=== PATIENT | female | born 1965 | race Caucasian/White ===

== ENCOUNTER 2023-01-07 14:50 | Outpatient (CLI) | payer OTHER, SELFPAY ==
--- NOTE | 2023-01-07 15:00 | CRLHL7_ITS ---
For Patients: As a result of the Century Cures Act, medical imaging exams and procedure reports are released immediately into your electronic medical record. You may view this report before your referring provider. If you have questions, please contact your health care provider. BILATERAL SCREENING MAMMOGRAM WITH COMPUTER-AIDED DETECTION AND TOMOSYNTHESIS TECHNIQUE: CC, MLO and Implant displaced views were obtained. These mammographic images have been obtained using full-field digital technique. These mammographic images were interpreted with the benefit of computer-aided detection. Breast Tomosynthesis was used in this interpretation. COMPARISON FILM: 09/11/20, 06/15/20, 11/05/18. FINDINGS: There are scattered areas of fibroglandular density IMPRESSION: There is no radiographic evidence for malignancy. ASSESSMENT: BI-RADS Category 2: Benign RECOMMENDATION: Routine screening mammogram in 1 year. A lay language report of this examination will be provided to the patient. Ronan Bañuelos M.D. Diagnostic/Nuclear Medicine Radiologist [email or web address] DIVINA/Dictated by: Ronan Bañuelos MD @ 01/08/2023 10:45:00 AM (Electronically Signed)
== END 2023-01-07 14:51 | disposition home or self-care (01) ==
PROVIDERS: PCP Family Medicine; Visit Provider Family Medicine
DX: Z12.31 Encounter for screening mammogram for malignant neoplasm of breast (principal)
CPT/HCPCS: 77063; 77067

== ENCOUNTER 2023-10-21 08:05 | Outpatient (CLI) | payer OTHER, SELFPAY ==
--- OUTSIDE RECORDS SUMMARY | 2023-10-25 12:54 | XMS_ITS | Encounter Summary ---
Author Organization [facility] Address [address] [place] [address]. [place] [address] Care Team Providers Care Turn Sewer Name Role Phone Licha Johnson MD Unavailable [phone] Violet Melgar MD Unavailable [phone] Violet Melgar MD Primary Care Provider Jennifer Roberts MD Unavailable [phone] Florentin Ojeda MD Unavailable [phone] Thierry Cheney PA-C Unavailable [phone] Violet Melgar MD Unavailable [phone] Encounter Details Date Type Department Care Team (Late st Contact Info) Description 02/06/[address] [facility] [address] [place] [id number] Pilar White, RN Social History Tobacco Use Types Packs/Day Years Used Date Smoking Tobacco: Former Cigarettes Q uit: 2006 Smokeless Tobacco: Never Alcohol Use Standard Drinks/Week Comments Yes 0 (1 standard drink = 0.6 oz pur e alcohol) Been awhile PHQ-2 Answer Date Recorded PHQ-2 Score 0 01/01/2022 Sex and Gender Information Value Date Recorded Sex Assigned at Female 09/14/2021 3:18 PM CDT Gender Identity Female 09/14/2021 3:18 PM CDT Sexual Orientation Straight 09/14/2021 3: 18 PM CDT COVID-19 Exposure Response Date Recorded In the last 10 days, have yo u been in contact with someone who was confirmed or suspected to have Coronavirus/COVID-19? No / Unsure 02/04/2022 7:34 AM CDT documented as of this encounter Plan of Treatment Not on file documented as of this encounter Visit Diagnoses Not on filedocumented in this encounter Additional Health Concerns Assessment Noted Time PHQ-9 Depression Total Score: 1 01/02/20 22 11:30 AM CDT documented as of this encounter Care Teams Turn Sewer Relationship Specialty [place] [address] [address] [address] PCP - General Family Medicine 01/01/22 Licha Johnson MD MD INTERNAL MEDICINE - ENDOCRINOLOGY, DIABETES & METABOLISM 04/12/11 [place] [address] [address] [address] Assigned PCP 08/31/21 03/28/23 Jennifer Roberts MD [address] [place] [address] [id number] Assigned Surgical Provider 01/19/22 01/31/23 Florentin Ojeda MD [address] [place] [id number] Assigned Heart and Vascular Provider 01/26/22 07/31/23 Thierry Cheney PA-C [address] [address] [address] Assigned PCP 03/29/23 07/10/23 [place] [address] [address] [address] Assigned PCP 07/11/23 documented as of this encounter
--- OUTSIDE RECORDS SUMMARY | 2023-10-25 12:54 | XMS_ITS | Clinical Summary ---
Author Organization [facility] Address [address] [place] [address] Care Team Providers Care Credit Director Name Role Phone Shukri Blancas MD Primary Care Provider [phone] Source Comments You are receiving this document as you are listed as the primary care provider,follow-up provider, or the patient has been referred to you for consultation.This is in compliance with the Medicare and[facility] EHR Incentive Program,which states Providers who transition their patient to another setting of careor provider of care or refers their patient to another provider of care shouldprovide summary care record for each transition of care or referral. [facility] Allergies No known active allergies Medications Medication Sig Dispensed Refills Start Date End Date Status LEVOXYL 137 MCG tablet 09/13/2019 Active sertraline (ZOLOFT) 100 MG tablet 09/14/2019 Active clobetasol (TEMOVATE) 0.05 % cream BLAINE SPARINGLY EXT AA BID 09/28/2019 Active rosuvastatin (CRESTOR) 10 MG tablet 04/05/2020 Active diclofenac (VOLTAREN) 1 % gelIndications:Primar y osteoarthritis of both knees,Primary osteoarthritis involving multiple joints Apply 4 g to skin 4 times a day. 300 g 11 07/24/2020 Active celecoxib (CELEBREX) 200 MG capsuleIndications:Ar thralgia, unspecified joint,Primary osteoarthritis of both knees,Primary osteoarthritis involving multiple joints Take 1 Capsule by mouth daily as needed for Pain. 180 Capsule 1 07/24/2020 Active Active Problems Problem Noted Date Diagnosed Date Primary osteoarthritis involving multiple joints 07/24/2020 NITA (obstructive sleep apnea) 08/13/2013 Insomnia 06/23/2013 Left-sided sensorineural hearing loss 01/19/2013 Hypothyroidism 06/25/2012 Overview: Due to thyroidectomy for papillary CA; managed by Dr. Carrillo in [place] (endocrine) Immunizations Name Administration Dates Next Due DTP 08/03/1968,1966,1966 Flu Vac (3+ yrs) 03/19/2013,03/01/2010 Influenza, Unspecified Formulation 04/05/2020 OPV, Trivalent (Orimune or tOPV) 08/20/1967,10/18 Tdap 06/03/2012 Family History Medical History Relation Name Comments Heart Disease Father Cancer Mother Relation Name Status Comments Father Mother Social History Tobacco Use Types Packs/Day Years Used Date Smoking Tobacco: Never Smokeless Tobacco: Never Sex and Gender Information Value Date Recorded Sex Assigned at Not on file Gender Identity Not on file Sexual Orientation Not on file Last Filed Vital Signs Vital Sign Reading Time Taken Comments Blood Pressure 123/78 07/24/2020 9:05 AM CORONER Pulse 79 07/24/2020 9:05 AM CORONER Temperature 36.9 ??C (98.5 ??F) 07/24/2020 9:05 AM CS T Respiratory Rate - - Oxygen Saturation - - Inhaled Oxygen Concentration - - Weight 77.6 kg (171 lb) 07/24/2020 9:05 AM CORONER Height 172.7 cm (5' 8) 12/15/2019 9:44 AM CDT Body Mass Index 26 12/15/2019 9:44 AM CDT Plan of Treatment Health Maintenance Due Date Last Done Comments Cervical Cancer Screening Due 1966 Colon Cancer Screening Plan Due 1966 Mammogram 1966 IPV (Polio) (3 of 3 - 4-dose series) 1970 08/20/1967, 1966 HIV Screening (Preventive Services) 1982 Adult Preventive Visit 1984 HepB (1) 1985 Cholesterol 09/23/2011 Zoster/Shingles (1 of 2) 2016 DTaP/Tdap/Td (5 - Tdap) 06/03/2022 06/03/19 13, 06/03/2012, 08/03/1968, Additional history exists COVID-19 Vaccine ( - 2022-24 season) 2023 Influenza (Season Ended) 2024 020, 03/19/2013, 03/01/2010 Hep C Screening (Preventive Services) Completed 04/25/2020 HepA Aged Out No longer eligi ble based on patient's age to complete this topic Hib Aged Out No longer eligi ble based on patient's age to complete this topic MCV4 Aged Out No longer eligi ble based on patient's age to complete this topic Pneumococcal Aged Out No longer eligi ble based on patient's age to complete this topic Procedures Procedure Name Priority Date/Time Associated Diagnosis Comments HEPATITIS C ANTIBODY, WITH REFLEX Routine 04/25/2020 10:01 AM CORONER Arthralgia, unspecified joint Psoriasis Primary osteoarthritis of both knees from Last 3 Months or Most Recently Relevant to Health Maintenance Results * [facility]AB - Hepatitis C Virus [place] with Reflex In-House (04/25/2020 10:01 AM CORONER) Hepatitis C Antibody Negative (Non Reactive) Negative (Non Reactive) 04/25/2020 4:09 PM [facility] Comment:Antibodies to HCV no t detected. Does not exclude the possiblity of exposure to HCV. Blood Venipuncture / Unknown 04/25/2020 10:01 AM CORONER 04/25/2020 10:05 AM CORONER Ede Lynn MD [facility] [address] [place] [address], [facility] from Last 3 Months or Most Recently Relevant to Health Maintenance Care Teams Credit Director Relationship Specialty Start Date End Date Shukri Blancas MD [facility] [address] [place] [address] PCP - General Family Practice 10/28/19
--- OUTSIDE RECORDS SUMMARY | 2023-10-25 12:54 | XMS_ITS | Referral Summary ---
Author Organization [facility] Address [address] [place] [address] Care Team Providers Care Reports Analyst Name Role Phone Licha Johnson MD Unavailable [phone] Violet Melgar MD Primary Care Provider Violet Melgar MD Unavailable [phone] Allergies No known active allergies Medications Medication Sig Dispensed Refills Start Date End Date Status sertraline (ZOLOFT) 100 MG tablet 09/05/2021 Active sertraline (ZOLOFT) 50 MG tablet 09/05/2021 Active diclofenac (VOLTAREN) 1 % topical gel Place 4 g onto the skin 07/24/2020 Active clobetasol (TEMOVATE) 0.05 % external cream APPLY TOPICALLY TWICE DAILY. APPLY SPARINGLY TO AFFECTED AREA. 03/15/2021 Active acyclovir (ZOVIRAX) 200 MG capsule 08/07/2021 Active rosuvastatin (CRESTOR) 10 MG tabletIndications:Hyp erlipidemia LDL goal <100 Take 1 tablet (10 mg) by mouth daily 90 tablet 3 09/20/2021 Active LEVOXYL 125 MCG tabletIndications:Pos tsurgical hypothyroidism Take 1 tablet (125 mcg) by mouth daily 90 tablet 3 09/20/2021 Active sertraline (ZOLOFT) 100 MG tabletIndications:Mil d recurrent major depression (H24) TAKE ONE AND ONE-HALF TABLETS BY MOUTH DAILY 135 tablet 03/12/2022 Active Active Problems Problem Noted Date Diagnosed Date Cyst of ovary, unspecified laterality 10/11/2021 Uterine leiomyoma, unspecified location 10/12/19 22 Hyperlipidemia LDL goal <100 10/11/2021 Mild recurrent major depression (H24) 10/11/2021 Hx of thyroid cancer 10/11/2021 Menopause 10/11/2021 Postsurgical hypothyroidism 10/11/2021 Other postprocedural status(V45.89) 11/26/2006 Resolved Problems Problem Noted Date Diagnosed Date Resolved Date iamiamMALIG SEGUN HEAD/FACE/NECK 11/26/2006 10/11/2021 Immunizations Name Administration Dates Next Due COVID-19 MONOVALENT 12+ (Pfizer) 03/12/2021,01/17 Flu, Unspecified 04/05/2020 Historical DTP/aP 08/03/1968, 7,1966,1966 Influenza (IIV3) PF 03/19/2013,03/01/2010 Influenza Vaccine >6 months,quad, PF 03/12/2021, 04/05/2020 Mantoux Tuberculin Skin Test 08/03/1968 OPV, trivalent, live 08/20/1967,1966,11/06 Poliovirus, inactivated (IPV) 08/20/1967 TD,PF 7+ (Tenivac) 11/02/1981 TDAP (Adacel,Boostrix) 06/03/2012 Td (Adult), Adsorbed 06/03/2012 Social History Tobacco Use Types Packs/Day Years Used Date Smoking Tobacco: Former Cigarettes Q uit: 2006 Smokeless Tobacco: Never Alcohol Use Standard Drinks/Week Comments Yes 0 (1 standard drink = 0.6 oz pur e alcohol) Been awhile PHQ-2 Answer Date Recorded PHQ-2 Score 0 01/01/2022 Adolescent Education Answer Date Record ed Getting School Help Needed Not on file 03/03 Sex and Gender Information Value Date Recorded Sex Assigned at Female 09/14/2021 3:18 PM CDT Gender Identity Female 09/14/2021 3:18 PM CDT Sexual Orientation Straight 09/14/2021 3: 18 PM CDT Last Filed Vital Signs Vital Sign Reading Time Taken Comments Blood Pressure 112/66 01/22/2022 8:39 AM CDT Pulse 63 01/22/2022 8:39 AM CDT Temperature 36.8 ??C (98.3 ??F) 01/01/2022 11:17 AM C DT Respiratory Rate 12 01/01/2022 11:17 AM CDT Oxygen Saturation 96% 01/22/2022 8:39 AM CDT Inhaled Oxygen Concentration - - Weight 72.7 kg (160 lb 4.8 oz) 01/22/2022 8:39 A M CDT Height 170.8 cm (5' 7.25) 01/22/2022 8:39 AM CD T Body Mass Index 24.92 01/22/2022 8:39 AM CDT Plan of Treatment Not on file Procedures Procedure Name Priority Date/Time Associated Diagnosis Comments BASIC METABOLIC PANEL Routine 01/01/2022 12:21 PM CDT Tinnitus of both ears TSH WITH FREE T4 REFLEX Routine 01/01/2022 12:21 PM CDT Tinnitus of both ears LIPID REFLEX TO DIRECT LDL PANEL Routine 01/01/2022 12:21 PM CDT Pressure in chest MA SCREENING WITH IMPLANTS BILATERAL W/ MISA Routine 11/09/2021 8:55 AM CDT Visit for screening mammogram HIV ANTIGEN ANTIBODY COMBO Routine 09/20/2021 5:56 PM CDT Screening for HIV (human immunodeficiency virus) HEPATITIS C SCREEN REFLEX TO HCV RNA QUANT AND GENOTYPE Routine 09/20/2021 5:56 PM CDT Need for hepatitis C screening test GYNECOLOGIC CYTOLOGY Routine 09/20/2021 5:37 PM CDT Cervical cancer screening HPV HIGH RISK TYPES DNA CERVICAL Routine 09/20/2021 5:37 PM CDT Cervical cancer screening COLONOSCOPY - HIM SCAN Routine 05/19/[address] THORAX W/O CONT Routine 07/27/2007 3:07 PM CDT from Last 3 Months or Most Recently Relevant to Health Maintenance Results * TSH with free T4 reflex (01/01/2022 12:21 PM CDT) TSH 0.59 0.40 - 4.00 mU/L 01/02/2022 11:50 AM CDT [facility] Blood BLOOD SPECIMEN / Unknown Venipuncture / Unknown 01/01/2022 12:21 PM CDT 01/01/2022 12:21 PM CDT Thierry Cheney PA-C LAB - BLOOD OR DERABLES [facility] [address] Lab (no room number, 1st floor of clinic) [place] [address], [facility] [phone] * (ABNORMAL) Lipid panel reflex to direct LDL Fasting (01/01/2022 12:21 PM CDT) Cholesterol 198 <200 mg/dL 01/02/2022 11:43 AM CDT [facility] Triglycerides 284(H) <150 mg/dL 01/02/2022 11:43 AM CDT [facility] Direct Measure HDL 50 >=50 mg/dL 01/02/2022 11:43 AM CDT [facility] LDL Cholesterol Calculated 91 <=100 mg/dL 01/02/2022 11:43 AM CDT [facility] Non HDL Cholesterol 148(H) <130 mg/dL 01/02/2022 11:43 AM CDT [facility] Patient Fasting > 8hrs? Yes 01/02/2022 11:43 AM CDT [facility] Blood BLOOD SPECIMEN / Unknown Venipuncture / Unknown 01/01/2022 12:21 PM CDT 01/01/2022 12:21 PM CDT Narrative [facility] - 01/02/2022 11:43 AM CDT Cholesterol Desirable: ??<200 mg/dL Triglycerides Normal: ??Less than 150 mg/dL Borderline High: ??150-199 mg/dL High: ??200-499 mg/dL Very High: ??Greater than or equal to 500 mg/dL Direct Measure HDL Female: ??Greater than or equal to 50 mg/dL Male: ??Greater than or equal to 40 mg/dL LDL Cholesterol Desirable: ??<100mg/dL Above Desirable: ??100-129 mg/dL Borderline High: ??130-159 mg/dL High: ??160-189 mg/dL Very High: ??>= 190 mg/dL Non HDL Cholesterol Desirable: ??130 mg/dL Above Desirable: ??130-159 mg/dL Borderline High: ??160-189 mg/dL High: ??190-219 mg/dL Very High: ??Greater than or equal to 220 mg/dL Thierry Cheney PA-C LAB - BLOOD OR DERABLES [facility] [address] Lab (no room number, 1st floor of clinic) [place] [address], [facility] [phone] * Basic metabolic panel (Ca, Cl, CO2, Creat, Gluc, K, Na, BUN) (01/01/2022 12:21 PM CDT) Sodium 140 133 - 144 mmol/L 01/02/2022 11:36 AM CDT [facility] Potassium 4.3 3.4 - 5.3 mmol/L 01/02/2022 11:36 AM CDT [facility] Chloride 107 94 - 109 mmol/L 01/02/2022 11:36 AM CDT [facility] Carbon Dioxide (CO2) 27 20 - 32 mmol/L 01/02/2022 11:36 AM CDT [facility] Anion Gap 6 3 - 14 mmol/L 01/02/2022 11:36 AM CDT [facility] Urea Nitrogen 15 7 - 30 mg/dL 01/02/2022 11:36 AM CDT [facility] Creatinine 0.80 0.52 - 1.04 mg/dL 01/02/2022 11:36 AM CDT [facility] Calcium 9.6 8.5 - 10.1 mg/dL 01/02/2022 11:36 AM CDT [facility] Glucose 92 70 - 99 mg/dL 01/02/2022 11:36 AM CDT [facility] GFR Estimate 87 >60 mL/min/1.7 3m2 01/02/2022 11:36 AM CDT [facility] Comment:Effective April 192020 eGFRcr in adults is calculated using the 2020 CKD-EPI creatinine equation which includes age and gender (Brant et al., NEJ, DOI: 10.1056/QAZOqn5740269) Blood BLOOD SPECIMEN / Unknown Venipuncture / Unknown 01/01/2022 12:21 PM CDT 01/01/2022 12:21 PM CDT Thierry Cheney PA-C LAB - BLOOD OR DERABLES [facility] [address] Lab (no room number, 1st floor of clinic) [place] [address], [facility] [phone] * MA Screen with Implants Bilateral w/Misa (11/09/2021 8:55 AM CDT) Anatomical Region Laterality Modality Breast Bilateral Mammography Narrative 11/12/2021 7:05 AM CDT BILATERAL FULL FIELD DIGITAL SCREENING MAMMOGRAM WITH TOMOSYNTHESIS Performed on: 11/09/21 No comparisons were made when reading this study. Technique: ??This study was evaluated with the assistance of Computer-Aided Detection. ??Breast Tomosynthesis was used in interpretation. Findings: The breasts have scattered areas of fibroglandular density. ?? There are breast augmentation changes in both breasts. There is no radiographic evidence of malignancy. IMPRESSION: ACR BI-RADS Category 2: Benign RECOMMENDED FOLLOW-UP: Annual routine screening mammogram The results and recommendations of this examination will be communicated to the patient. Violet Melgar MD IMG MAMMOGRAPHY ORDERABLES * HIV Antigen Antibody Combo (09/20/2021 5:56 PM CDT) HIV Antigen Antibody Combo Nonreactive Nonreactive 09/21/2021 4:48 PM CDT [facility] C[facility]/PROT/EN DO Comment:HIV-1 p24 Ag & HIV-1 /HIV-2 Ab Not Detected Blood STRUCTURE OF LEFT UPPER LIMB / Unknown Venipuncture / Unknown 09/20/2021 5:56 PM CDT 09/20/2021 5:56 PM CDT Violet Melgar MD LAB - BLOOD ORD ERABLES [facility]PROT/ENDO [facility] Core/Prot/Endo [address] [facility], [address] [address], [facility] [phone] * Hepatitis C Screen Reflex to HCV RNA Quant and Genotype (09/20/2021 5:56 PM CDT) Hepatitis C Antibody Nonreactive Nonreactive 09/21/2021 4:48 PM CDT [facility] C[facility]/PROT/EN DO Blood STRUCTURE OF LEFT UPPER LIMB / Unknown Venipuncture / Unknown 09/20/2021 5:56 PM CDT 09/20/2021 5:56 PM CDT Narrative [facility]/PROT/ENDO - 09/21/2021 4:48 PM CDT Assay performance characteristics have not been established for newborns, infants, and children. Violet Melgar MD LAB - BLOOD ORD ERABLES [facility]/PROT/ENDO [facility] Core/Prot/Endo [address] [facility], [address] [address], [facility] [phone] * Pap Screen with HPV - recommended age 30 - 65 years (09/20/2021 5:37 PM CDT) Interpretation Negative for Intraepithelial Lesion or Malignancy (NILM) 09/25/2021 10:19 AM CDT [facility] Comment Papanicolaou Test Limitations: Cervical cytology is a screening test with limited sensitivity, and regular screening is critical for cancer prevention. Pap tests are primarily effective for the diagnosis/prevent ion of squamous cell carcinoma, not adenocarcinoma or other cancers. 09/25/2021 10:19 AM CDT [facility] Specimen Adequacy Satisfactory for evaluation but limited by:transitional zone component present. 09/25/2021 10:19 AM CDT [facility] Clinical Information post-menopausal 09/25/2021 10:19 AM CDT [facility] Reflex Testing Yes regardless of result 09/25/2021 10:19 AM CDT [facility] Previous Abnormal? No 09/25/2021 10:19 AM CDT [facility] Performing Labs The technical component of this testing was completed at [facility] 09/25/2021 10:19 AM CDT [facility] Brushing CERVIX UTERI STRUCTURE / Unknown 09/20/2021 5:37 PM CDT 09/20/2021 5:58 PM CDT Violet [facility]APLAN [facility] Specialty Lab [address] [facility], [address] [address], [facility] [phone] * HPV High Risk Types DNA Cervical (09/20/2021 5:37 PM CDT) Other HR HPV Negative Negative 09/27/2021 1:07 PM CDT [facility] HPV16 DNA Negative Negative 09/27/2021 1:07 PM CDT [facility] HPV18 DNA Negative Negative 09/27/2021 1:07 PM CDT [facility] FINAL DIAGNOSIS This patient's sample is negative for HPV DNA. This test was developed and its performance characteristics determined by the [facility]. It has not been cleared or approved by the FDA. The laboratory is regulated under CLIA as qualified to perform high-complexity testing. This test is used for clinical purposes. It should not be regarded as investigational or for research. METHODOLOGY: The Leola Gillian 4800 system uses automated extraction, simultaneous amplification of HPV (L1 region) and beta-globin, followed by real time detection of fluorescent labeled HPV and beta globin using specific oligonucleotide probes. The test specifically identified types HPV 16 DNA and HPV 18 DNA while concurrently detecting the rest of the high risk types (31, 33, 35, 39, 45, 51, 52, 56, 58, 59, 66 or 68). COMMENTS: This test is not intended for use as a screening device for woman under age 30 with normal cervical cytology. Results should be correlated with cytologic and histologic findings. Close clinical followup is recommended. 09/27/2021 1:07 PM CDT [facility] Brushing CERVIX UTERI STRUCTURE / Unknown Non-blood Collection / Unknown 09/20/2021 5:37 PM CDT 09/26/2021 11:21 AM CDT Violet Melgar MD LAB - BLOOD ORD ERABLES [facility] Molecular Diagnostics [address] [facility] [address], [address] [place] [address], [facility] [phone] * Colonoscopy - HIM Scan (05/19/2016) Narrative Waleska Chadwick - 05/19/2016 Violet Melgra MD ??P Abstract Quality Initiatives Colonoscopy normal 2017 at [facility] Patient Reported PROCEDURES * CT SCAN CHEST (07/27/2007 3:07 PM CDT) Anatomical Region Laterality Modality Other 07/27/2007 3:07 PM CDT Impressions 07/30/2007 4:[address] CHEST WITH CONTRAST Jul 27, 2007 3:07:00 PM HISTORY: Hypothyroid and papillary cancer. TECHNIQUE: Helical CT through the chest was performed following injection of 100 mL of [id number]-300 without adverse reaction. COMPARISON: 10/08/2006. FINDINGS: Calcified lymph nodes in the right retro and perijugular neck base seen on previous examination has been removed. I do not see evidence for any local recurrence of adenopathy in this region. Mediastinum also shows no new masses or adenopathy. Anterior mediastinal soft tissue mass is less prominent and has features most compatible with that of the thymus gland. Cardiac size, shape and pericardium appear normal. Lung parenchyma demonstrates a tiny stable 5 mm subpleural pulmonary nodule in the superior right upper lung (image 12, sequence 4). The remainder of the lung parenchyma is again felt to be clear without sign of active chest disease. CONCLUSION: 1. Interval resolution or surgical removal of calcified lymph nodes in the anterior right neck base. 2. Overall decrease of prominent anterior mediastinal soft tissue mass which has configuration and radiographic appearance most compatible with thymus gland. 3. Stable tiny subpleural pulmonary nodule in the right upper lung. No evidence for metastatic disease within the chest is felt to be present. Licha Johnson MD SPECIAL IMAGING [facility] from Last 3 Months or Most Recently Relevant to Health Maintenance Care Teams Reports Analyst Relationship Specialty [place] [address] [address] [address] PCP - General Family Medicine 01/01/22 Licha Johnson MD INTERNAL MEDICINE - ENDOCRINOLOGY, DIABETES & METABOLISM 04/12/11 [place] [address] [address] [address] Assigned PCP 07/11/23
--- OUTSIDE RECORDS SUMMARY | 2023-10-25 12:54 | XMS_ITS | Clinical Summary ---
Author Organization [facility] Address [address] [place] [address] Care Team Providers Care Community Service Aide Name Role Phone Licha Johnson MD Unavailable [phone] Violet Melgar MD Primary Care Provider Violet Melgar MD Unavailable [phone] Allergies No known active allergies Medications Medication [...] laterality 10/11/2021 Uterine leiomyoma, unspecified location 10/12/19 Hyperlipidemia LDL goal <100 10/11/2021 Mild recurrent [...] TDAP (Adacel,Boostrix) 06/03/2012 Td (Adult), Adsorbed 06/03/2012 Family History Medical History Relation Comments Bradycardia Father Pacemaker Father Prostate Cancer Father Polycystic ovary syndrome Mother Thyroid Cancer Mother Hyperlipidemia Paternal Grandfather Hypertension Paternal Grandfather Myocardial Infarction Paternal Grandfather Diabetes Paternal Grandmother Hyperlipidemia Paternal Grandmother Hypertension Paternal Grandmother Hyperlipidemia Sister 1 Hypertension Sister 1 Polycystic ovary syndrome Sister 1 Hyperlipidemia Sister 2 Relation Status Comments Father Maternal Grandfather Maternal Grandmother Mother Paternal Grandfather Paternal Grandmother Sister 1 Alive Sister 2 Alive Social History Tobacco Use Types Packs/Day Years [...] 01/22/2022 8:39 AM CDT Plan of Treatment Health Maintenance Due Date Last Done Comments ADVANCE CARE PLANNING 1966 CT COLONOGRAPHY 1966 DEPRESSION ACTION PLAN 1966 FIT 1966 FLEX SIG 1966 sDNA (Cologuard) 1966 IPV IMMUNIZATION (3 of 3 - 4-dose series) 1970 08/20/1967, 08/20/1967, 1966, Additional history exists HEPATITIS B IMMUNIZATION (1 of 3 - 19+ 3-dose series) 1985 LUNG CANCER SCREENING 2016 07/27/2007 , 01/22/2007, 10/08/2006 ZOSTER IMMUNIZATION (1 of 2) 2016 DTAP/TDAP/TD IMMUNIZATION (7 - Td or Tdap) 06/03/2022 06/03/2012, 06/03/2012, 11/02/1981, Additional history exists PHQ-9 07/04/2022 01/01/2022, 0810/2021, 09/20/2021, Additional history exists ANNUAL REVIEW OF HM ORDERS 09/20/2022 09/20/2021 YEARLY PREVENTIVE VISIT 09/20/2022 09/20/2021 LIPID 01/01/2023 01/01/2022, 09/20/2021 TSH W/FREE T4 REFLEX 01/01/2023 01/01/2022, 09/20/2021, 09/20/2021 COVID-19 Vaccine ( season) 2023 03/12/2021, 01/29/2021 MAMMO SCREENING 11/10/2023 11/09/2021 INFLUENZA VACCINE (Season Ended) 2024 03/12/2021, 04/05/2020, 04/05/2020, Additional history exists GLUCOSE 01/01/2025 01/01/2022 COLONOSCOPY 05/19/2026 05/19/2016 COLORECTAL CANCER SCREENING 05/19/2026 HPV TEST 09/20/2026 09/20/2021 PAP 09/20/2026 09/20/2021 HEPATITIS C SCREENING Completed 09/20/2021 HIV SCREENING Completed 09/20/2021 HPV IMMUNIZATION Aged Out No longer e ligible based on patient's age to complete this topic MENINGITIS IMMUNIZATION Aged Out No l onger eligible based on patient's age to complete this topic Pneumococcal Vaccine: Pediatrics (0 to 5 Years) and At-Risk Patients (6 to 64 Years) Aged Out No longer eligible based on patient's age to complete this topic RSV MONOCLONAL ANTIBODY Aged Out No l onger eligible based on patient's age to complete this [...] LAB - BLOOD OR DERABLES [facility] [address] Lab (no room number, 1st floor of clinic) [place] [address], [facility] [phone] * (ABNORMAL) Lipid panel reflex to direct [...] Cheney PA-C LAB - BLOOD OR DERABLES Performing Organization Address [facility]/State/ZIP Co de Phone Number [facility] [address] Lab (no room number, 1st floor of clinic) [place] [address], [facility] [phone] * Basic metabolic panel (Ca, Cl, CO2, [...] and gender (Brant et al., NEJ, DOI: 10.1056/[id number]) Blood BLOOD SPECIMEN / Unknown Venipuncture / Unknown 01/01/2022 12:21 PM CDT 01/01/2022 12:21 PM CDT Thierry Cheney PA-C LAB - BLOOD OR DERABLES [facility] [address] Lab (no room number, 1st floor of clinic) [place] [address], [facility] [phone] * MA Screen with Implants Bilateral w/Misa [...] Combo Nonreactive Nonreactive 09/21/2021 4:48 PM CDT [facility]EN DO Comment:HIV-1 p24 Ag & HIV-1 /HIV-2 Ab Not Detected Blood STRUCTURE OF LEFT UPPER LIMB / Unknown Venipuncture / Unknown 09/20/2021 5:56 PM CDT 09/20/2021 5:56 PM CDT Violet Melgar MD LAB - BLOOD ORD ERABLES Performing Organization Address City/[facility]/ZIP Co de Phone Number [facility]/ENDO [facility]Prot/Endo [address] [facility], [address] [phone] * Hepatitis C Screen Reflex to HCV [...] [facility]PROT/ENDO [facility]Prot/Endo [address] [facility] [address] [facility], Room [address] [phone] * Pap Screen with HPV - recommended age 30 - 65 years (09/20/2021 5:37 PM CDT) Interpretation Negative for Intraepithelial Lesion or Malignancy (NILM) 09/25/2021 10:19 AM CDT [facility] Comment Papanicolaou Test Limitations: Cervical cytology is a screening test with limited sensitivity, and regular screening is critical for cancer prevention. Pap tests are primarily effective for the diagnosis/prevent ion of squamous cell carcinoma, not adenocarcinoma or other cancers. 09/25/2021 10:19 AM CDT [facility] Specimen Adequacy Satisfactory for evaluation but limited by:transitional zone component present. 09/25/2021 10:19 AM CDT [facility] Clinical Information post-menopausal 09/25/2021 10:19 AM CDT [facility] Reflex Testing Yes regardless of result 09/25/2021 10:19 AM CDT [facility] Previous Abnormal? No 09/25/2021 10:19 AM CDT [facility] Performing Labs The technical component of this testing was completed at [facility] 09/25/2021 10:19 AM CDT [facility] Brushing CERVIX UTERI STRUCTURE / Unknown 09/20/2021 5:37 PM CDT 09/20/2021 5:58 PM CDT Violet GRANADOS [facility] [address] [facility], [address] [place] [address], [facility] [phone] * HPV High Risk Types DNA Cervical (09/20/2021 5:37 PM CDT) Other HR HPV Negative Negative 09/27/2021 1:07 PM CDT [facility] HPV16 DNA Negative Negative 09/27/2021 1:07 PM CDT [facility] HPV18 DNA Negative Negative 09/27/2021 1:07 PM CDT [facility] FINAL DIAGNOSIS This patient's sample is negative for HPV DNA. This test was developed and its performance characteristics determined by the [facility], Molecular Diagnostics Laboratory. It has not been [...] followup is recommended. 09/27/2021 1:07 PM CDT [facility] Brushing CERVIX UTERI STRUCTURE / Unknown Non-blood Collection / Unknown 09/20/2021 5:37 PM CDT 09/26/2021 11:21 AM CDT Violet Melgar MD LAB - BLOOD ORD ERABLES MO[facility]CULAR DIAGNOSTICS Molecular Diagnostics [address] [facility], [address] [address], [facility] [phone] * Colonoscopy - HIM Scan (05/19/2016) Narrative Waleska Chadwick - 05/19/2016 Violet Melgar MD ??P Abstract Quality Initiatives Colonoscopy normal 2017 at [facility] Patient Reported PROCEDURES * CT SCAN CHEST [...] present. Licha Johnson MD SPECIAL IMAGING [facility] from Last 3 Months or Most Recently Relevant to Health Maintenance Care Teams Community Service Aide Relationship Specialty [place] [address] [address] [address] PCP - General Family Medicine 01/01/22 Licha Johnson MD INTERNAL MEDICINE - ENDOCRINOLOGY, DIABETES & METABOLISM 04/12/11 [place] [address] [address] [address] Assigned PCP 07/11/23
--- OUTSIDE RECORDS SUMMARY | 2023-10-25 12:54 | XMS_ITS | Encounter Summary ---
Author Organization [facility] Address [address] [place] [address]. [place] [address] Care Team Providers Care Firefighter Name Role Phone iLcha Johnson MD Unavailable [phone] Viloet Melgar MD Unavailable [phone] Violet Melgar MD Primary Care Provider Jennifer Roberts MD Unavailable [phone] Florentin Ojeda MD Unavailable [phone] Thierry Cheney PA-C Unavailable [phone] Violet Melgar MD Unavailable [phone] Encounter Details Date Type Department Care Team (Late st Contact Info) Description 02/12/2022 MyC Medical Advice [facility] [address] [place] [phone] Pilar White, RN Social History Tobacco Use [...] suspected to have Coronavirus/COVID-19? No / Unsure 02/14/2022 10:11 AM CDT documented as of this encounter Plan of Treatment Not on file documented as of this encounter Visit Diagnoses Not on filedocumented in this encounter Additional Health Concerns Assessment Noted Time PHQ-9 Depression Total Score: 1 01/02/20 22 11:30 AM CDT documented as of this encounter Care Teams Firefighter Relationship Specialty [place] [address] [address] [address] PCP - General Family Medicine 01/01/22 Licha Johnson MD MD INTERNAL MEDICINE - ENDOCRINOLOGY, DIABETES & METABOLISM 04/12/11 [place] [address] [address] [address] Assigned PCP 08/31/21 03/28/23 Jennifer Roberts MD [address] [place] [address] [phone] Assigned Surgical Provider 01/19/22 01/31/23 Florentin Ojeda MD [address] [place] [id number] Assigned Heart and Vascular Provider 01/26/22 07/31/23 Thierry Cheney PA-C [address] [address] [address] Assigned PCP 03/29/23 07/10/23 [place] [address] [address] [address] Assigned PCP 07/11/23 documented as of this encounter
--- OUTSIDE RECORDS SUMMARY | 2023-10-25 12:54 | XMS_ITS | Encounter Summary ---
Author Organization [facility] Address [address] [place] [address]. [place] [address] Care Team Providers Care Travel Consultant Name Role Phone Licha Johnson MD Unavailable [phone] Violet Melgar MD Unavailable [phone] Violet Melgar MD Primary Care Provider Jennifer Roberts MD Unavailable [phone] Florentin Ojeda MD Unavailable [phone] Thierry Cheney PA-C Unavailable [phone] Violet Melgar MD Unavailable [phone] Encounter Details Date Type Department Care Team (Late st Contact Info) Description 02/15/2022 [facility] [address] [place] [phone] Tian Obrien RN Social History Tobacco Use Types Packs/Day Years Used Date Smoking Tobacco: Former Cigarettes Q uit: 2007 Smokeless Tobacco: Never Alcohol Use Standard Drinks/Week [...] AM CDT documented as of this encounter Miscellaneous Notes * Telephone Encounter - Tian Obrien RN - 02/15/2022 1:45 PM CDT I phoned patient to inform her that her CT Calcium scan revealed no calcium in her coronary arteries. I told her that this means that she is in a lower risk category for developing coronary disease down the road. She was pleased to hear this and she told me that she will keep working on her cholesterol with [facility]. She had no questions for me. I will update Dr. Ojeda. FINDINGS: ?? Overall quality of the study: Good. ?? CORONARY ARTERY CALCIUM SCORES: ?? Left main coronary artery: 0 Left anterior descending coronary artery: 0 Circumflex coronary artery: 0 Right coronary artery: 0 ?? TOTAL CALCIUM SCORE: 0 ?? The total Agatston calcium score is 0. documented in this encounter Plan of Treatment Not on file documented as of this encounter Visit Diagnoses Not on filedocumented in this encounter Additional Health Concerns Assessment Noted Time PHQ-9 Depression Total Score: 1 01/02/20 22 11:30 AM CDT documented as of this encounter Care Teams Travel Consultant Relationship Specialty [place] [address] [address] [address] PCP - General Family Medicine 01/01/22 Licha Johnson MD INTERNAL MEDICINE - ENDOCRINOLOGY, DIABETES & METABOLISM 04/12/11 [place] [address] [address] [address] Assigned PCP 08/31/21 03/28/23 Jennifer Roberts MD [address] [place] [address] Assigned Surgical Provider 01/19/22 01/31/23 Florentin Ojeda MD [address] [facility] [address] [place] [address] Assigned Heart and Vascular Provider 01/26/22 07/31/23 Thierry Cheney PA-C [address] [place] [address] Assigned PCP 03/29/23 07/10/23 [place] [address] [place] [address] Assigned PCP 07/11/23 documented as of this encounter
== END 2023-10-21 08:06 | disposition home or self-care (01) ==
LOC: NFLDREF 10-25 12:52
PROVIDERS: PCP Family Medicine; Referring Provider Family Medicine; Visit Provider Family Medicine
DX: E16.2 Hypoglycemia, unspecified (principal); E78.5 Hyperlipidemia, unspecified; E03.9 Hypothyroidism, unspecified; Z79.1 Long term (current) use of non-steroidal anti-inflammatories (NSAID)
CPT/HCPCS: 80053; 80061; 84439; 84443

== ENCOUNTER 2024-02-12 09:00 | Outpatient (RCR) | payer OTHER, SELFPAY | END 2024-04-27 15:00 | disposition home or self-care (01) | PROVIDERS: PCP Family Medicine; Visit Provider Orthopaedic Surgery | DX: M16.11 Unilateral primary osteoarthritis, right hip (principal); M25.561 Pain in right knee; M25.562 Pain in left knee; M25.551 Pain in right hip; Z51.89 Encounter for other specified aftercare | CPT/HCPCS: 97110; 97140; 97162; 97535 ==

== ENCOUNTER 2024-10-28 07:39 | Outpatient (CLI) | payer OTHER, SELFPAY | END 2024-10-28 07:40 | disposition home or self-care (01) | LOC: NFLDREF 10-29 00:08 | PROVIDERS: PCP Family Medicine; Referring Provider Family Medicine; Visit Provider Family Medicine | DX: E78.5 Hyperlipidemia, unspecified (principal); E03.9 Hypothyroidism, unspecified; R53.83 Other fatigue; Z79.1 Long term (current) use of non-steroidal anti-inflammatories (NSAID); Z13.1 Encounter for screening for diabetes mellitus | CPT/HCPCS: 80053; 80061; 84439; 84443 ==

== ENCOUNTER 2025-01-25 16:23 | Outpatient (CLI) | payer OTHER, SELFPAY ==
--- NOTE | 2025-01-25 16:20 | CRLHL7_ITS ---
For Patients: As a result of the Century Cures Act, medical imaging exams and procedure reports are released immediately into your electronic medical record. You may view this report before your referring provider. If you have questions, please contact your health care provider. INDICATION: BILATERAL SCREENING MAMMOGRAM, ASYMPTOMATIC 59 Y/O FEMALE COMPARISON: 01/07/2023, 09/11/2020, 11/05/2018 TECHNIQUE: Digital mammogram in CC and MLO projections including computer-aided detection (CAD) and tomosynthesis. BREAST COMPOSITION: There are scattered areas of fibroglandular density. FINDINGS: No suspicious findings. ASSESSMENT: BI-RADS 2 Benign RECOMMENDATION: Annual screening mammogram. A lay language report of this examination will be provided to the patient. Dictated by: Cesar Perez MD @ 01/26/2025 11:21:04 (Electronically Signed)
== END 2025-01-25 16:24 | disposition home or self-care (01) ==
LOC: MAMMO 16:23
PROVIDERS: PCP Family Medicine; Visit Provider Family Medicine
DX: Z12.31 Encounter for screening mammogram for malignant neoplasm of breast (principal)
CPT/HCPCS: 77063; 77067

== ENCOUNTER 2025-02-25 11:00 | Outpatient (RCR) | payer OTHER, SELFPAY | END 2025-03-24 11:55 | disposition home or self-care (01) | PROVIDERS: PCP Family Medicine; Visit Provider Physician Assistant | DX: H81.90 Unspecified disorder of vestibular function, unspecified ear (principal); M79.12 Myalgia of auxiliary muscles, head and neck; M26.621 Arthralgia of right temporomandibular joint; Z51.89 Encounter for other specified aftercare | CPT/HCPCS: 97110; 97112; 97161 ==